=== PATIENT | female | born 1965 | race Caucasian/White ===

== ENCOUNTER → 2016-11-29 | Outpatient (CLI) | payer OTHER ==
[~2016-11-29] MED LIST: CIPRO 250MG TA250 MG PO; CLIMARA PRO TD; GABAPENTIN100 MG PO; METFORMIN ER500 MG PO; ORACEA40 MG PO; PHENERGAN 25MG.25 M1 PO; ROSUVASTATIN CA20 MG PO; VITAMIN D1000 IU PO; ZOFRAN ODT4 MG PO
[2016-11-29 15:47] LABS: BUN 11 mg/dL (7-18)
[2016-11-29 16:02] LABS: GFR (ESTIMATED) 105 ML/MIN (59-)
== END ==
LOC: LAB 13:47
PROVIDERS: Specialist
DX: R51 Headache (principal); R41.3 Other amnesia; Z85.820 Personal history of malignant melanoma of skin